=== PATIENT | female | born 1935 | race Caucasian/White ===

== ENCOUNTER 2023-08-27 07:56 | Emergency (ER) | payer MEDICARE ==
[2023-08-27] MEDS ORDERED: Acetaminophen 325 MG TAB ONE (09:07)
[2023-08-27] MEDS ORDERED: Bupivacaine PF 0.5% 30 ML VIAL ONE (09:08)
[2023-08-27] MEDS ORDERED: Boostrix 0.5 ML (Tdap) VIAL (>/=7 yrs of age) ONE (12:30)
[2023-08-27] MEDS ORDERED: CEFAZOLIN 1 GM VIAL ONE (12:30)
[2023-08-27] MEDS ORDERED: Sterile Water 10 ML ONE (12:33)
[2023-08-27] MEDS ORDERED: Bacitracin 1 PK ONE (12:36)
== END 2023-08-27 13:15 | disposition home or self-care (01) ==
LOC: ERS 07:56
DX: S51.811A Laceration without foreign body of right forearm, initial encounter (principal); S00.431A Contusion of right ear, initial encounter; M25.511 Pain in right shoulder; G89.29 Other chronic pain; I10 Essential (primary) hypertension; Z55.6 Problems related to health literacy; Z75.3 Unavailability and inaccessibility of health-care facilities; Z23 Encounter for immunization; Z79.899 Other long term (current) drug therapy; E03.9 Hypothyroidism, unspecified; W01.0XXA Fall on same level from slipping, tripping and stumbling without subsequent striking against object, initial encounter
CPT/HCPCS: 70450; 73030 ×2; 73090; 90715; J0665; J0690; 12004; 90471; 96372